=== PATIENT | female | born 1990 | race Caucasian/White ===

== ENCOUNTER 2019-11-01 01:21 | Emergency (ER) | payer OTHER ==
[~2019-11-01] VITALS: Ht 157.5 cm; Wt 86.4 kg
--- NOTE | 2019-11-01 01:35 | PHYS DOC ---
General Adult HPI: HPI: The history was obtained from the patient. Patient is a 29-year-old female with no reported PMH who presents with a chief complaint of left ankle pain. Patient states just prior to arrival she was standing on a stepladder. She states she was going to step down missed the final step and injured her ankle. She is unclear of the position of her left foot and ankle when she injured it. She also notes that she fell backwards catching herself with her left arm. She notes some mild left elbow discomfort. She notes significant swelling to the lateral aspect of the left ankle. Denies striking her head or LOC. Has not been ambulatory since the fall. Denies numbness or tingling to the left lower extremity or left upper extremity. No other complaints. Review of Systems: Review of Systems: Constitutional: Denies fever or chills. [] Eyes: Denies change in visual acuity. [] HENT: Denies nasal congestion or sore throat. [] Respiratory: Denies cough or shortness of breath. [] Cardiovascular: Denies chest pain or edema. [] GI: Denies abdominal pain, nausea, vomiting, bloody stools or diarrhea. [] : Denies dysuria. [] Musculoskeletal: Positive for arthralgias. Positive for fall. Integument: Denies rash. [] Neurologic: Denies headache, focal weakness or sensory changes. [] Endocrine: Denies polyuria or polydipsia. [] Lymphatic: Denies swollen glands. [] Psychiatric: Denies depression or anxiety. [] Heart Score: Risk Factors: Risk Factors: DM, Current or recent (<one month) smoker, HTN, HLP, family history of CAD, obesity. Risk Scores: Score 0 - 3: 2.5% MACE over next 6 weeks - Discharge Home Score 4 - 6: 20.3% MACE over next 6 weeks - Admit for Clinical Observation Score 7 - 10: 72.7% MACE over next 6 weeks - Early Invasive Strategies Allergies: Allergies: Allergies Uncoded Allergies Type Severity Reaction Last Updated Verified latex Adverse Reaction Intermediate Swelling 03/20/13 Physical Exam: PE: Constitutional: Well developed, well nourished, no acute distress, non-toxic appearance. [] HENT: Normocephalic, atraumatic, bilateral external ears normal, oropharynx moist, no oral exudates, nose normal. [] Eyes: PERRLA, EOMI, conjunctiva normal, no discharge. [] Neck: Normal range of motion, no tenderness, supple, no stridor. [] Cardiovascular:Heart rate regular rhythm, no murmur [] Lungs & Thorax: Bilateral breath sounds clear to auscultation [] Abdomen: soft, no tenderness, no masses, no pulsatile masses. [] Skin: Warm, dry, no erythema, no rash. [] Back: No tenderness, no CVA tenderness. [] Extremities: L KNEE/ANKLE/FOOT: Focal tenderness to palpation at the lateral malleolus. Significant swelling overlying the lateral malleolus noted. Tissue compartments are soft. Distal pulses are 2+. Knee extension is intact. Plantar flexion is intact. Proximal fibula is not tender to palpation. Medial malleolus is not tender to palpation. 5th metatarsal head is not tender to palpation. There is no obvious deformity. Passive ROM is reduced due to pain. Active ROM is reduced due to pain. Elbow with mild reproducible tenderness over the olecranon process. No deformities noted. +2-4 radial pulse on the left. Sensation in the median, ulnar, radial nerve intact. Neurologic: Alert and oriented X 3, normal motor function, normal sensory function, no focal deficits noted. [] Psychologic: Affect normal, judgement normal, mood normal. [] EKG: EKG: [] Radiology/Procedures: Radiology/Procedures: [facility] [address] [place] [address] IMAGING REPORT Signed PATIENT: TEMO RAJPUT ACCOUNT: [id number] : 1990 LOCATION: ER AGE: 29 SEX: F EXAM STATUS: REG ER ORD. PHYSICIAN: CHRISTOFER TOLENTINO DO REASON: ankle pain s/p fall PROCEDURE: ANKLE LEFT 3V INDICATION: Reason: Leg pain s/p fall / Spl. Instructions: / History: COMPARISON: None. IMPRESSION: Left ankle: 3 views obtained. Soft tissue swelling is seen overlying the lateral malleolus. There is also a tibiotalar joint effusion suspected. Small ossific density structure adjacent to the fibular tip. A small fracture fragment of unknown age can have this appearance. Left foot: 3 views obtained. No definite acute fracture or dislocation. Left elbow: 3 views obtained. There is a suspected elbow joint effusion. Mild angulation of the radial head. Would correlate with point tenderness within the region since a nondisplaced fracture is possible given this mild angulation and joint effusion. No evidence of dislocation. Electronically signed by: Michele Richards MD (11/01/2019 3:17 AM) Epic [id number] DICTATED and SIGNED BY: MICHELE RICHARDS MD DATE: 11/01/19316 [facility] [address] [place] [address] IMAGING REPORT Signed PATIENT: TEMO RAJPUT ACCOUNT: [id number] : 1990 LOCATION: ER AGE: 29 SEX: F EXAM STATUS: REG ER ORD. PHYSICIAN: CHRISTOFER TOLENTINO DO REASON: significant ankle swelling s/p injury PROCEDURE: CT LOWER EXTREMITY WO LEFT INDICATION: Reason: significant ankle swelling s/p injury / Spl. Instructions: / History: COMPARISON: Plain film from same day TECHNIQUE: Axial CT images obtained through the left ankle. One or more of the following individualized dose reduction techniques were utilized for this examination: 1. Automated exposure control; 2. Adjustment of the mA and/or kV according to patient size; 3. Use of iterative reconstruction technique. FINDINGS: Adjacent to the fibular tip there is a small ossific fragment. There is a large amount of soft tissue swelling overlying the lateral malleolus. Sclerotic focus at the talar dome could be from a small bone island. There is blood seen within the soft tissues of the ankle most severe along the lateral aspect which also extends into the foot. IMPRESSION: * There is a large amount of edema as well as blood within the soft tissues at the left side of the ankle and extending into the hindfoot region. * Small ossific density adjacent to the fibular tip which could be from a small fracture fragment of unknown age. Electronically signed by: Michele Richards MD (11/01/2019 3:30 AM) [id number] DICTATED and SIGNED BY: MICHELE RICHARDS MD DATE: 11/01/19 0330 Course & Med Decision Making: Course & Med Decision Making Pertinent Labs and Imaging studies reviewed. (See chart for details) Patient is a 29-year-old female who presents with chief complaint of left elbow and ankle pain status post mechanical fall. Vital signs unremarkable. Exam noted above. Plain film imaging reveals subtle swelling in the radial head. Patient does have some point tenderness over this area. She does have full range of motion however. Left ankle plain film imaging reveals no acute osseous abnormality. Given the patient's significant swelling discomfort CT imaging was obtained. Swelling and blood noted in the left ankle. No obvious fracture identified. She will be given an Aircast and crutches to go home with. She will be placed in a sling for her left upper extremity. She was explicitly instructed not to keep her left upper extremity immobilized throughout the day and to engage in range of motion activities. She will be given referral to orthopedic surgery. Return precautions discussed and understood. Stable for discharge home. Dragon Disclaimer: Susan Disclaimer: This electronic medical record was generated, in whole or in part, using a voice recognition dictation system. Departure Departure Impression: Primary Impression: Left ankle injury Qualified Codes: S99.912A - Unspecified injury of left ankle, initial encounter Additional Impressions: Injury of left elbow Qualified Codes: S59.902A - Unspecified injury of left elbow, initial encounter Fall Qualified Codes: W19.XXXA - Unspecified fall, initial encounter Disposition: HOME, SELF-CARE Condition: STABLE Referrals: LEN OSBORNE MD (PCP) SELINA HERNANDEZ MD Patient Instructions: Radial Head Fracture Scripts Hydrocodone/Apap 5-325 (NORCO 5-325 TABLET) 1 Each Tablet 1-2 EACH PO PRN Q6HRS PRN for PAIN, #10 as needed for pain Prov: CHRISTOFER TOLENTINO DO 11/01/19 Justicifation of Admission Dx: Justifications for Admission: Justification of Admission Dx: N/A CHRISTOFER TOLENTINO DO Nov 01, 2019 01:35
[2019-11-01] MEDS ORDERED: HYDROcodone/APAP 5/325MG 1 TAB TABLET PO ONE (02:00)
--- NOTE | 2019-11-01 03:20 | RAD ---
INDICATION: Reason: Leg pain s/p fall / Spl. Instructions: / History: COMPARISON: None. IMPRESSION: Left ankle: 3 views obtained. Soft tissue swelling is seen overlying the lateral malleolus. There is also a tibiotalar joint effusion suspected. Small ossific density structure adjacent to the fibular tip. A small fracture fragment of unknown age can have this appearance. Left foot: 3 views obtained. No definite acute fracture or dislocation. Left elbow: 3 views obtained. There is a suspected elbow joint effusion. Mild angulation of the radial head. Would correlate with point tenderness within the region since a nondisplaced fracture is possible given this mild angulation and joint effusion. No evidence of dislocation. Electronically signed by: Alfred King MD (11/01/2019 3:17 AM) [id number]
--- NOTE | 2019-11-01 03:33 | RAD ---
INDICATION: Reason: significant ankle swelling s/p injury / Spl. Instructions: / History: COMPARISON: Plain film from same day TECHNIQUE: Axial CT images obtained through the left ankle. One or more of the following individualized dose reduction techniques were utilized for this examination: 1. Automated exposure control; 2. Adjustment of the mA and/or kV according to patient size; 3. Use of iterative reconstruction technique. FINDINGS: Adjacent to the fibular tip there is a small ossific fragment. There is a large amount of soft tissue swelling overlying the lateral malleolus. Sclerotic focus at the talar dome could be from a small bone island. There is blood seen within the soft tissues of the ankle most severe along the lateral aspect which also extends into the foot. IMPRESSION: * There is a large amount of edema as well as blood within the soft tissues at the left side of the ankle and extending into the hindfoot region. * Small ossific density adjacent to the fibular tip which could be from a small fracture fragment of unknown age. Electronically signed by: Alfred King MD (11/01/2019 3:30 AM) [id number]
[2019-11-01] MEDS ORDERED: HYDR-3164 PO (03:51)
[2019-11-01 04:02] VITALS: BP 135/68
== END 2019-11-01 04:13 | disposition home or self-care (01) ==
LOC: ER 01:21
DX: S99.812A Other specified injuries of left ankle, initial encounter (principal); S59.802A Other specified injuries of left elbow, initial encounter; M79.672 Pain in left foot; R60.0 Localized edema; W18.39XA Other fall on same level, initial encounter; Y93.89 Activity, other specified; Y92.89 Other specified places as the place of occurrence of the external cause; Y99.8 Other external cause status
CPT/HCPCS: 73080; 73610; 73630; 73700; 81025; 99285; L4350; A4565